=== PATIENT | female | born 1950 | race Caucasian/White ===

== ENCOUNTER → 2019-03-07 08:08 | Outpatient (CLI) | payer MEDICARE, OTHER, SELFPAY ==
--- NOTE | 2019-03-07 08:18 | BI_ITS ---
MAMMOGRAPHY - BILATERAL SCREENING 3-D TOMOSYNTHESIS REASON FOR EXAM: Female, 68 years old. Screening PERTINENT HISTORY: No significant family history. TECHNIQUE: 2-D mammograms and 3-D Tomosynthesis of the breast (s) were performed. CAD was performed. COMPARISON: 03/27/2017 BILATERAL DIGITAL MAMMOGRAM WITH TOMOSYNTHESIS: Mediolateraloblique and craniocaudal views demonstrate no evidence of dominant parenchymal masses. No cluster of microcalcifications or architectural distortion is seen. No evidence of skin thickening is identified. There has been no significant change since 03/27/2017 . Breast Density: The breast tissue is extremely dense which may lower the sensitivity of mammography. CAD was used to assist in final assessment. IMPRESSION: NORMAL MAMMOGRAM BILATERALLY. FINAL ASSESSMENT: BIRAD 1 (NEGATIVE) FOLLOW UP RECOMMENDATION: Yearly follow up mammogram recommended. (A) Approximately 10% of breast cancers are not detected by mammography. A normal mammogram should not delay biopsy of a clinically suspicious abnormality. Electronically Signed: Marcello Cortez, at 7:14 EDT Tel , Service support , BI/SCREEN MAMM (CAD) W/ABRAN GARCIA
== END ==
PROVIDERS: Family Provider Family Medicine; Referring Provider Nurse Practitioner Women's Health; Visit Provider Nurse Practitioner Women's Health
DX: Z12.31 Encounter for screening mammogram for malignant neoplasm of breast (principal)
CPT/HCPCS: 77063; 77067

== ENCOUNTER → 2019-07-22 08:22 | Outpatient (CLI) | payer MEDICARE, OTHER, SELFPAY ==
[2019-07-15 08:05] VITALS: BMI 18.0
--- NOTE | 2019-07-22 08:24 | US_ITS ---
STUDY: ULTRASOUND OF THE FEMALE PELVIS - COMPLETE REASON FOR EXAM: Female, 69 years old. BLOATING LMP: Unknown. TECHNIQUE: Transabdominal and Transvaginal TECHNICAL QUALITY: Adequate. COMPARISON: None. FINDINGS: The uterus is anteverted and is in a midline position. The uterus measures 6.3 x 5 20 x 2.9 cm. There is a Nabothian cyst of the cervix. The endometrium measures 7 mm in thickness, and is hyperechoic. There is no demonstrated endometrial mass. There are small calcifications in the myometrium I.U.D. - The patient does not have an I.U.D. . The right ovary is visualized. The right ovary measures 1.5 x 1.4 x 1.3 cm. There is no right ovarian cyst or ovarian mass. There is no visualized right adnexal mass or complex lesion. There is normal arterial and normal venous vascularity. The left ovary is visualized. The left ovary measures 2.6 x 1.9 x 1.2 cm. There is no left ovarian cyst or ovarian mass. There is no visualized left adnexal mass or complex lesion. There is normal arterial and normal venous vascularity. There is no fluid in the cul-de-sac. The pre void volume of the bladder was 91 ml. US/Transvaginal Non- IMPRESSION: No dominant mass or cyst. Electronically Signed: Nathan Collins MD at 12:08 EST , Service support ,
--- NOTE | 2019-07-22 08:24 | US_ITS ---
STUDY: ULTRASOUND OF THE FEMALE PELVIS - COMPLETE REASON FOR EXAM: Female, 69 years old. BLOATING LMP: Unknown. TECHNIQUE: Transabdominal and Transvaginal TECHNICAL QUALITY: Adequate. COMPARISON: None. FINDINGS: The uterus is anteverted and is in a midline position. The uterus measures 6.3 x 5 20 x 2.9 cm. There is a Nabothian cyst of the cervix. The endometrium measures 7 mm in thickness, and is hyperechoic. There is no demonstrated endometrial mass. There are small calcifications in the myometrium I.U.D. - The patient does not have an I.U.D. . The right ovary is visualized. The right ovary measures 1.5 x 1.4 x 1.3 cm. There is no right ovarian cyst or ovarian mass. There is no visualized right adnexal mass or complex lesion. There is normal arterial and normal venous vascularity. The left ovary is visualized. The left ovary measures 2.6 x 1.9 x 1.2 cm. There is no left ovarian cyst or ovarian mass. There is no visualized left adnexal mass or complex lesion. There is normal arterial and normal venous vascularity. There is no fluid in the cul-de-sac. The pre void volume of the bladder was 91 ml. US/Pelvic (Non ) IMPRESSION: No dominant mass or cyst. Electronically Signed: Nathan Collins MD at 12:08 EST , Service support ,
== END ==
PROVIDERS: Referring Provider Nurse Practitioner Women's Health; Visit Provider Nurse Practitioner Women's Health
DX: R14.0 Abdominal distension (gaseous) (principal)
CPT/HCPCS: 76830; 76856

== ENCOUNTER → 2019-09-23 08:16 | Outpatient (CLI) | payer MEDICARE, OTHER, SELFPAY ==
[2019-07-15 08:05] VITALS: BMI 18.0
--- NOTE | 2019-09-23 08:18 | US_ITS ---
STUDY: ULTRASOUND OF THE FEMALE PELVIS - COMPLETE REASON FOR EXAM: Female, 69 years old. Bloating , post ankur- , re-check endo LMP: The patient is postmenopausal. TECHNIQUE: Transabdominal and Transvaginal TECHNICAL QUALITY: Adequate. COMPARISON: Comparison is made with prior examination dated July 22, 2019. FINDINGS: The uterus is anteverted and is in a midline position. The uterus measures 6.1 cm x 4.2 cm x 2.7 cm. Normal uterine cervix. The endometrium measures 8.0 mm in thickness, and is hyperechoic. There is no demonstrated endometrial mass. There is no demonstrated myometrial mass. Stable small calcifications are noted in the myometrium. I.U.D. - The patient does not have an I.U.D. The right ovary is visualized. The right ovary measures 1.8 cm x 1.8 cm x 1.7 cm. There is no right ovarian cyst or ovarian mass. There is no visualized right adnexal mass or complex lesion. There is normal arterial and normal venous vascularity. The left ovary is visualized. The left ovary measures 2.3 cm x 2 cm x 1.3 cm. There is no left ovarian cyst or ovarian mass. There is no visualized left adnexal mass or complex lesion. There is normal arterial and normal venous vascularity. There is no fluid in the cul-de-sac. The pre void volume of the bladder was 185 ml. Polycystic ovary disease: No. US/Pelvic (Non ) IMPRESSION: Persistent thickening of the endometrium. Electronically Signed: Ezra Rodrigez, at 9:52 EDT , Service support ,
--- NOTE | 2019-09-23 08:18 | US_ITS ---
STUDY: ULTRASOUND OF THE FEMALE PELVIS - COMPLETE REASON FOR EXAM: Female, 69 years old. Bloating , post ankur- , re-check endo LMP: The patient is postmenopausal. TECHNIQUE: Transabdominal and Transvaginal TECHNICAL QUALITY: Adequate. COMPARISON: Comparison is made with prior examination dated July 22, 2019. FINDINGS: The uterus is anteverted and is in a midline position. The uterus measures 6.1 cm x 4.2 cm x 2.7 cm. Normal uterine cervix. The endometrium measures 8.0 mm in thickness, and is hyperechoic. There is no demonstrated endometrial mass. There is no demonstrated myometrial mass. Stable small calcifications are noted in the myometrium. I.U.D. - The patient does not have an I.U.D. The right ovary is visualized. The right ovary measures 1.8 cm x 1.8 cm x 1.7 cm. There is no right ovarian cyst or ovarian mass. There is no visualized right adnexal mass or complex lesion. There is normal arterial and normal venous vascularity. The left ovary is visualized. The left ovary measures 2.3 cm x 2 cm x 1.3 cm. There is no left ovarian cyst or ovarian mass. There is no visualized left adnexal mass or complex lesion. There is normal arterial and normal venous vascularity. There is no fluid in the cul-de-sac. The pre void volume of the bladder was 185 ml. Polycystic ovary disease: No. US/Transvaginal Non- IMPRESSION: Persistent thickening of the endometrium. Electronically Signed: Ezra Rodrigez, at 9:52 EDT , Service support ,
== END ==
PROVIDERS: Referring Provider Nurse Practitioner Women's Health; Visit Provider Nurse Practitioner Women's Health
DX: R14.0 Abdominal distension (gaseous) (principal)
CPT/HCPCS: 76830; 76856

== ENCOUNTER → 2019-10-21 13:00 | Outpatient (CLI) | payer MEDICARE, OTHER, SELFPAY ==
[2019-10-21 08:29] VITALS: BMI 18.6
--- NOTE | 2019-10-21 08:45 | EMB_PTH ---
PATIENT: TATO ESTRADA LOC: [facility] U#:[id number] AGE/SX: 75/F ROOM: RE10/21/[address]: SANDRA Membreno : 1950 BED: DIS: SPEC #: [id number] RECD: 10/21/19 12:45 STATUS: MICHELLE REJessica #: [id number] GRUPO: 10/21/19 08:[address]: Roxanne Harmon NP DEPT: SURGICAL PATHOLOGY RECD BY: Gucci Mcarthur ENTERED: 10/22/19 09:13 SP TYPE: ENDOM BX/C ANA DR: Dr. Augustine Mccoy MD Tissues: Endometrium, NOS Procedures: Surgery Specimen Level IV HEADER OPERATION: Endometrial biopsy PRE-OP DIAGNOSIS: Abnormal uterine bleeding TISSUE SUBMITTED: Endometrial lining MICROSCOPIC DIAGNOSIS Endometrial biopsy: Strips of benign endometrial epithelium, consistent with atrophic endometrium. Fragments of benign endocervical epithelium and mucous. See comment. SJ:marci 10/23/19 COMMENT The specimen predominantly consists of mucoid tissue. MICROSCOPIC DESCRIPTION Slides are reviewed. GROSS DESCRIPTION Received is one container labeled with the patient's name and not further designated. The specimen consists of multiple irregular fragments of lino soft tissue mixed with mucoid tissue that in aggregate measure 2.5 x 1.5 x 0.2 cm. The specimen is totally submitted in one cassette. / SJ:marci 10/22/19 TC:4 CPT: 48472
== END ==
PROVIDERS: Visit Provider Nurse Practitioner Women's Health
DX: N93.9 Abnormal uterine and vaginal bleeding, unspecified (principal)
CPT/HCPCS: 88305

== ENCOUNTER → 2020-03-09 | Outpatient (CLI) | payer MEDICARE, OTHER, SELFPAY ==
[2019-10-21 08:29] VITALS: BMI 18.6
--- NOTE | 2020-03-09 07:50 | BI_ITS ---
MAMMOGRAPHY - BILATERAL SCREENING REASON FOR EXAM: Female, 69 years old. Routine annual screening examination. PERTINENT HISTORY: NO FAM HX CURR HRT PRN SINCE 07/2018 RT STEREO BX 1999 AND 2016 BILAT MOLES MARKED RT NIPPLE SMALL RED DOT X 1 WEEK TECHNIQUE: Digital bilateral breast abran (3D mammographic acquisition) in the CC and MLO projections. 2-D mediolateral oblique (MLO) and craniocaudad (CC) views of both breasts were obtained. CAD: Full Field Digital Mammography with Computer Added Detection was performed. COMPARISON: 03/07/2019 and 05/07/2017 FINDINGS: Breast Composition: The breasts are heterogeneously dense, which may obscure small masses. There are no dominant masses or suspicious calcifications. No other significant abnormalities are identified. BI/SCREEN MAMM (CAD) W/ABRAN BILAT IMPRESSION: Stable bilateral screening mammogram. Yearly follow-up mammogram recommended. (A) ASSESSMENT CATEGORY: BIRADS Category 2: Benign. A letter regarding these results will be sent to the patient by the facility within 30 days. Approximately 10% of breast cancers are not detected by mammography. A normal mammogram should not delay biopsy of a clinically suspicious abnormality. [id number] Electronically Signed: Angel Baron, at 14:55 EDT Tel , Service support ,
== END | disposition home or self-care (01) ==
LOC: OPBI 07:50
PROVIDERS: Referring Provider Nurse Practitioner Women's Health; Visit Provider Nurse Practitioner Women's Health
DX: Z12.31 Encounter for screening mammogram for malignant neoplasm of breast (principal)
CPT/HCPCS: 77063; 77067

== ENCOUNTER → 2020-10-06 13:47 | Outpatient (CLI) | payer MEDICARE, OTHER, SELFPAY ==
[2020-07-20 08:05] VITALS: BMI 18.8
--- NOTE | 2020-10-06 13:49 | RAD_ITS ---
STUDY: BARIUM ENEMA. Incomplete colonoscopy. REASON FOR EXAM: Female, 70 years old. SCREENING FOR COLON CA FLUOROSCOPY TIME (if supplied): ( 68 seconds ) minutes/seconds. 9 images were obtained. TECHNIQUE: A peanut sorter film was obtained. Following this, barium was introduced retrograde through the rectum. The entire colon was opacified. COMPARISON: None. FINDINGS: On the peanut sorter image, nonspecific bowel gas pattern. The entire colon was opacified. There is evidence of the sigmoid diverticulosis with no radiographic evidence of diverticulitis. There is evidence of redundancy of the sigmoid colon. There is no evidence of retrograde or antegrade obstruction to the flow of contrast. RAD/Barium Enema w/Air Contrast IMPRESSION: Sigmoid diverticulosis with no radiographic signs of diverticulitis. Electronically Signed: Ezra Rodrigez MD at 14:35 EDT , Service support ,
== END ==
PROVIDERS: Referring Provider Surgery; Visit Provider Surgery
DX: Z12.11 Encounter for screening for malignant neoplasm of colon (principal)
CPT/HCPCS: 74280

== ENCOUNTER 2020-12-14 13:45 | Emergency (ER) | payer MEDICARE, OTHER, SELFPAY ==
[2020-07-20 08:05] VITALS: BMI 18.8
[2020-12-14 13:46] VITALS: BP 157/82; PULSE 75; RESP 16; TEMP 36.6; O2SAT 97; BMI 19.2
[2020-12-14] MEDS: Lidocaine 1% (20 ml mdv) 20 ML Vial INFILT (14:06)
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
--- NOTE | 2020-12-14 15:10 | RAD_ITS ---
STUDY: X-RAY - LEFT ELBOW REASON FOR EXAM: Female, 70 years old. Pain following a fall. TECHNIQUE: 3 view(s) of the elbow. COMPARISON: None. FINDINGS: Normal visualized humerus, radius and ulna. Normal radiocapitellar and ulnotrochlear articulations. Soft tissue swelling and laceration overlying the proximal ulna. RAD/Elbow min 3 Views IMPRESSION: Soft tissue swelling and ulceration overlying the posterior proximal ulna. Electronically Signed: Ezra Rodrigez MD at 15:37 EDT , Service support ,
[2020-12-14] MEDS: Ibuprofen 200 MG Tablet 400 MG PO (16:45)
== END 2020-12-14 16:51 | disposition home or self-care (01) ==
PROVIDERS: Emergency Provider Emergency Medicine; PCP Family Medicine
DX: S51.022A Laceration with foreign body of left elbow, initial encounter (principal); S60.512A Abrasion of left hand, initial encounter; S60.511A Abrasion of right hand, initial encounter; S80.212A Abrasion, left knee, initial encounter; S80.211A Abrasion, right knee, initial encounter; V11.0XXA Pedal cycle driver injured in collision with other pedal cycle in nontraffic accident, initial encounter; Y93.55 Activity, bike riding; Y92.89 Other specified places as the place of occurrence of the external cause; Y99.8 Other external cause status
CPT/HCPCS: 12002; 73080; 99283

== ENCOUNTER → 2021-01-20 08:37 | Outpatient (CLI) | payer MEDICARE, OTHER, SELFPAY ==
[2021-01-17 12:49] VITALS: BMI 19.2
--- NOTE | 2021-01-20 08:38 | US_ITS ---
STUDY: ULTRASOUND OF THE FEMALE PELVIS - COMPLETE REASON FOR EXAM: Female, 70 years old. Postmenopausal bleeding. Pelvic pain. LMP: Patient is postmenopausal. TECHNIQUE: Transabdominal and Transvaginal TECHNICAL QUALITY: Adequate. COMPARISON: Comparison is made with prior examination 09/23/2019. FINDINGS: The uterus is anteverted and is in a midline position. The uterus measures 5.8 cm x 5.2 cm x 2.8 cm. Normal uterine cervix. The endometrium is thickened and measures 5 mm in thickness, and is hyperechoic. There is no demonstrated endometrial mass. There is a 6 mm x 5 mm cystic change in the myometrium. I.U.D. - The patient does not have an I.U.D. The right ovary is visualized. The right ovary measures 1.8 cm x 2.3 cm x 1.1 cm. There is no right ovarian cyst or ovarian mass. There is no visualized right adnexal mass or complex lesion. There is normal arterial and normal venous vascularity. The left ovary is visualized. The left ovary measures 2.3 cm x 2.2 cm x 1.6 cm. There is no left ovarian cyst or ovarian mass. There is no visualized left adnexal mass or complex lesion. There is normal arterial and normal venous vascularity. There is minimal fluid in the cul-de-sac. The pre void volume of the bladder was 122 ml. Polycystic ovary disease: No. US/Transvaginal Non- IMPRESSION: Thickening of the endometrium. 6 mm x 5 mm cyst in the myometrium. Electronically Signed: Ezra Rodrigez MD at 14:37 EDT , Service support ,
--- NOTE | 2021-01-20 08:38 | US_ITS ---
STUDY: ULTRASOUND OF THE FEMALE PELVIS - COMPLETE REASON FOR EXAM: Female, 70 years old. Postmenopausal bleeding. Pelvic pain. LMP: Patient is postmenopausal. TECHNIQUE: Transabdominal and Transvaginal TECHNICAL QUALITY: Adequate. COMPARISON: Comparison is made with prior examination 09/23/2019. FINDINGS: The uterus is anteverted and is in a midline position. The uterus measures 5.8 cm x 5.2 cm x 2.8 cm. Normal uterine cervix. The endometrium is thickened and measures 5 mm in thickness, and is hyperechoic. There is no demonstrated endometrial mass. There is a 6 mm x 5 mm cystic change in the myometrium. I.U.D. - The patient does not have an I.U.D. The right ovary is visualized. The right ovary measures 1.8 cm x 2.3 cm x 1.1 cm. There is no right ovarian cyst or ovarian mass. There is no visualized right adnexal mass or complex lesion. There is normal arterial and normal venous vascularity. The left ovary is visualized. The left ovary measures 2.3 cm x 2.2 cm x 1.6 cm. There is no left ovarian cyst or ovarian mass. There is no visualized left adnexal mass or complex lesion. There is normal arterial and normal venous vascularity. There is minimal fluid in the cul-de-sac. The pre void volume of the bladder was 122 ml. Polycystic ovary disease: No. US/Pelvic (Non ) IMPRESSION: Thickening of the endometrium. 6 mm x 5 mm cyst in the myometrium. Electronically Signed: Ezra Rodrigez MD at 14:37 EDT , Service support ,
== END ==
PROVIDERS: Referring Provider Nurse Practitioner Women's Health; Visit Provider Nurse Practitioner Women's Health
DX: N85.8 Other specified noninflammatory disorders of uterus (principal); N95.0 Postmenopausal bleeding; R93.89 Abnormal findings on diagnostic imaging of other specified body structures; R10.2 Pelvic and perineal pain; Z78.0 Asymptomatic menopausal state
CPT/HCPCS: 76830; 76856; 93976

== ENCOUNTER → 2021-03-10 08:04 | Outpatient (CLI) | payer MEDICARE, OTHER, SELFPAY ==
[2020-07-20 08:05] VITALS: BMI 18.8
--- NOTE | 2021-03-10 08:05 | BI_ITS ---
MAMMOGRAPHY - BILATERAL SCREENING 3-D TOMOSYNTHESIS REASON FOR EXAM: Female, 70 years old. screening for breast cancer PERTINENT HISTORY: No significant family history. TECHNIQUE: 2-D mammograms and 3-D Tomosynthesis of the breast (s) were performed. CAD was performed. COMPARISON: 03/09/2020 FINDINGS: The breast composition is Extermely dense tissue. Scattered benign calcifications are seen. No dense spiculated masses or suspicious microcalcifications are identified. No architectural distortion is identified. There is no skin thickening or retraction. There has been no significant change since the prior study. BI/SCRN MAMM (CAD)W/ABRAN BILAT IMPRESSION: No mammographic signs of malignancy. Routine yearly mammograms recommended. ASSESSMENT CATEGORY: BIRADS Category 1: Negative. A letter regarding these results will be sent to the patient by the facility within 30 days. FOLLOW UP RECOMMENDATION: Yearly follow up mammogram recommended. (A) Approximately 10% of breast cancers are not detected by mammography. A normal mammogram should not delay biopsy of a clinically suspicious abnormality. Electronically Signed: Juan Miguel Multani MD at 9:16 EDT Tel , Service support ,
== END ==
PROVIDERS: Referring Provider Nurse Practitioner Women's Health; Visit Provider Nurse Practitioner Women's Health
DX: Z12.31 Encounter for screening mammogram for malignant neoplasm of breast (principal)
CPT/HCPCS: 77063; 77067

== ENCOUNTER 2021-06-05 08:12 | Outpatient (CLI) | payer MEDICARE, OTHER, SELFPAY ==
--- NOTE | 2021-06-05 08:16 | US_ITS ---
STUDY: ULTRASOUND OF THE FEMALE PELVIS - COMPLETE REASON FOR EXAM: Female, 71 years old. Abnormal uterine bleeding LMP: Patient is postmenopausal. TECHNIQUE: Transabdominal and Transvaginal TECHNICAL QUALITY: Adequate. COMPARISON: Comparison is made with prior examination dated 01/20/2021. FINDINGS: The uterus is anteverted and is in a midline position. The uterus measures 6 cm x 3.9 cm x 2.3 cm. Normal uterine cervix. The endometrium is thickened and measures 5 mm in thickness, and is fluid distended. There is no demonstrated endometrial mass. 5 mm x 5 mm x 3 mm cyst within the myometrium. This is essentially unchanged. I.U.D. - The patient does not have an I.U.D. The right ovary is visualized. The right ovary measures 1.3 cm x 1.2 cm x 2.3 cm. There is no right ovarian cyst or ovarian mass. There is no visualized right adnexal mass or complex lesion. There is normal arterial and normal venous vascularity. The left ovary is visualized. The left ovary measures 1.8 cm x 1.9 cm x 1.6 cm. There is no left ovarian cyst or ovarian mass. There is no visualized left adnexal mass or complex lesion. There is normal arterial and normal venous vascularity. There is no fluid in the cul-de-sac. The pre void volume of the bladder was 221 ml. US/Pelvic (Non ) IMPRESSION: Thickened endometrium. Stable myometrial cyst. Electronically Signed: Ezra Rodrigez MD at 14:29 EST , Service support ,
--- NOTE | 2021-06-05 08:16 | US_ITS ---
STUDY: ULTRASOUND OF THE FEMALE PELVIS - COMPLETE REASON FOR EXAM: Female, 71 years old. Abnormal uterine bleeding LMP: Patient is postmenopausal. TECHNIQUE: Transabdominal and Transvaginal TECHNICAL QUALITY: Adequate. COMPARISON: Comparison is made with prior examination dated 01/20/2021. FINDINGS: The uterus is anteverted and is in a midline position. The uterus measures 6 cm x 3.9 cm x 2.3 cm. Normal uterine cervix. The endometrium is thickened and measures 5 mm in thickness, and is fluid distended. There is no demonstrated endometrial mass. 5 mm x 5 mm x 3 mm cyst within the myometrium. This is essentially unchanged. I.U.D. - The patient does not have an I.U.D. The right ovary is visualized. The right ovary measures 1.3 cm x 1.2 cm x 2.3 cm. There is no right ovarian cyst or ovarian mass. There is no visualized right adnexal mass or complex lesion. There is normal arterial and normal venous vascularity. The left ovary is visualized. The left ovary measures 1.8 cm x 1.9 cm x 1.6 cm. There is no left ovarian cyst or ovarian mass. There is no visualized left adnexal mass or complex lesion. There is normal arterial and normal venous vascularity. There is no fluid in the cul-de-sac. The pre void volume of the bladder was 221 ml. US/Transvaginal Non- IMPRESSION: Thickened endometrium. Stable myometrial cyst. Electronically Signed: Ezra Rodrigez MD at 14:29 EST , Service support ,
== END 2021-06-05 23:59 | disposition short-term general hospital (02) ==
LOC: US 08:15
PROVIDERS: Referring Provider Obstetrics & Gynecology; Visit Provider Obstetrics & Gynecology
DX: N95.0 Postmenopausal bleeding (principal); N85.8 Other specified noninflammatory disorders of uterus; R93.89 Abnormal findings on diagnostic imaging of other specified body structures
CPT/HCPCS: 76830; 76856

== ENCOUNTER → 2021-12-07 | Outpatient (CLI) | payer MEDICARE, OTHER, SELFPAY ==
--- NOTE | 2021-12-07 07:43 | US_ITS ---
STUDY: ULTRASOUND OF THE FEMALE PELVIS - COMPLETE REASON FOR EXAM: Female, 71 years old. Abnormal uterine bleeding LMP: Patient is postmenopausal. TECHNIQUE: Transabdominal and Transvaginal TECHNICAL QUALITY: Adequate. COMPARISON: Comparison is made with prior study dated 06/05/2021. FINDINGS: The uterus is anteverted and is in a midline position. The uterus measures 5.6 cm x 4.3 cm x 2.7 cm. There is a Nabothian cyst of the cervix. The endometrium measures 2.4 mm in thickness, and is heterogeneous (striated). Tiny amount of fluid is seen in the endometrium. There is no demonstrated endometrial mass. Heterogeneous echotexture of the myometrium suggestive of fibroid change. I.U.D. - The patient does not have an I.U.D. The right ovary is non-visualized. The left ovary is visualized. The left ovary measures 1.4 cm x 0.9 cm x 0.9 cm. There is no left ovarian cyst or ovarian mass. There is no visualized left adnexal mass or complex lesion. There is normal arterial and normal venous vascularity. There is no fluid in the cul-de-sac. The pre void volume of the bladder was 169 ml. US/Transvaginal Non- IMPRESSION: Heterogeneous appearance of the myometrium suggesting fibroid change. Tiny amount of endometrial fluid. Electronically Signed: Ezra Rodrigez MD at 9:57 EDT ,
--- NOTE | 2021-12-07 07:43 | US_ITS ---
STUDY: ULTRASOUND OF THE FEMALE PELVIS - COMPLETE REASON FOR EXAM: Female, 71 years old. Abnormal uterine bleeding LMP: Patient is postmenopausal. TECHNIQUE: Transabdominal and Transvaginal TECHNICAL QUALITY: Adequate. COMPARISON: Comparison is made with prior study dated 06/05/2021. FINDINGS: The uterus is anteverted and is in a midline position. The uterus measures 5.6 cm x 4.3 cm x 2.7 cm. There is a Nabothian cyst of the cervix. The endometrium measures 2.4 mm in thickness, and is heterogeneous (striated). Tiny amount of fluid is seen in the endometrium. There is no demonstrated endometrial mass. Heterogeneous echotexture of the myometrium suggestive of fibroid change. I.U.D. - The patient does not have an I.U.D. The right ovary is non-visualized. The left ovary is visualized. The left ovary measures 1.4 cm x 0.9 cm x 0.9 cm. There is no left ovarian cyst or ovarian mass. There is no visualized left adnexal mass or complex lesion. There is normal arterial and normal venous vascularity. There is no fluid in the cul-de-sac. The pre void volume of the bladder was 169 ml. US/Pelvic (Non ) IMPRESSION: Heterogeneous appearance of the myometrium suggesting fibroid change. Tiny amount of endometrial fluid. Electronically Signed: Ezra Rodrigez MD at 9:57 EDT ,
== END | disposition home or self-care (01) ==
LOC: US 07:43
PROVIDERS: Referring Provider Obstetrics & Gynecology; Visit Provider Obstetrics & Gynecology
DX: N93.9 Abnormal uterine and vaginal bleeding, unspecified (principal); N95.0 Postmenopausal bleeding; Z78.0 Asymptomatic menopausal state
CPT/HCPCS: 76830; 76856

== ENCOUNTER → 2022-03-12 | Outpatient (CLI) | payer MEDICARE, OTHER, SELFPAY ==
--- NOTE | 2022-03-12 07:59 | BI_ITS ---
MAMMOGRAPHY - BILATERAL SCREENING REASON FOR EXAM: Female, 71 years old. Routine annual screening examination. PERTINENT HISTORY: Non-contributory. History of prior right stereotactic breast biopsy. TECHNIQUE: Digital bilateral breast abran (3D mammographic acquisition) in the CC and MLO projections. 2-D mediolateral oblique (MLO) and craniocaudad (CC) views of both breasts were obtained. CAD: Full Field Digital Mammography with Computer Added Detection was performed. COMPARISON: Comparison is made with prior examination dated 03/10/2021 and 03/09/2020. FINDINGS: Breast Composition: The breasts are extremely dense, which lowers the sensitivity of mammography. There are no dominant masses or suspicious calcifications. A patient marker is once again seen in the deep upper lateral aspect of the right breast. A tissue clip marker is also seen in the inferior slightly medial portion of the right breast as well. No other significant abnormalities are identified. There has been no significant change since the prior study. BI/SCRN MAMM (CAD)W/ABRAN BILAT IMPRESSION: Stable bilateral screening mammogram. Yearly follow-up mammogram recommended. (A) ASSESSMENT CATEGORY: BIRADS Category 2: Benign. A letter regarding these results will be sent to the patient by the facility within 30 days. Approximately 10% of breast cancers are not detected by mammography. A normal mammogram should not delay biopsy of a clinically suspicious abnormality. [id number] Electronically Signed: Ezra Rodrigez MD at 9:07 EDT ,
== END | disposition home or self-care (01) ==
LOC: OPBI 07:58
PROVIDERS: Visit Provider Nurse Practitioner Women's Health
DX: Z12.31 Encounter for screening mammogram for malignant neoplasm of breast (principal)
CPT/HCPCS: 77063; 77067

== ENCOUNTER 2022-05-19 20:27 | Emergency (ER) | payer MEDICARE, OTHER, SELFPAY ==
[2022-05-19 20:28] VITALS: BP 172/83; PULSE 71; RESP 16; TEMP 36.6; O2SAT 98; BMI 19.4
[2022-05-19 20:30] VITALS: BP 172/83; PULSE 71; RESP 16; TEMP 36.6; O2SAT 98
--- NOTE | 2022-05-19 22:27 | EDS_ITS ---
HPI History of Present Illness Chief Complaint: Abd Pain Informant: patient Onset/Context/Timing Onset: Today Current Severity: Gone Maximum Severity: Moderate Narrative Narrative: Patient presents secondary to right lower quadrant abdominal pain. She states that she had developed a painful lump on her right lower abdomen just above the groin line around 6 PM this evening. After laying in the hospital bed it seems to have disappeared and her pain has since resolved as well. Patient denies any known history of hernia. [facility] Medical History Microcalcification of right breast on mammogram stereotactic breast biopsy (05/2017) Thickened endometrium Home Medications multivitamin,[id number] (Complete Multivitamin tablet) 1 tab PO DAILY 07/15/19 [History Last Taken Unknown] antiarthritic combination no.2 900 mg tablet (glucosamine-chondroitin) mg PO 07/20/20 [History Last Taken Unknown] biotin 1 mg capsule 1 mg PO DAILY 07/20/20 [History Last Taken Unknown] Allergy/AdvReac Type Severity Reaction Status Date / Time penicillin G Allergy Severe Anaphylaxis Verified 07/24/21 08:04 Sulfa (Sulfonamide Allergy Severe anaphylaxis Verified 07/24/21 08:04 Antibiotics) amoxicillin Allergy Intermediate Anaphylaxis Verified 07/24/21 08:04 Family History Father Hypertension Sister Colon cancer Mother Cancer Surgical History History of tonsillectomy Previous section Social History Smoking Status: Never smoker second hand exposure: No alcohol intake: never substance use type: does not use caffeine: No what type of physical activity do you participate in: walking seatbelt use: always do you feel safe at home: Yes additional social history: - Works at [employer] Constitutional Constitutional ED: Denies chills or fever(s) Eyes Eyes: Denies change in vision or discharge from eye(s) ENT ENT ED: Denies discharge from eye(s), rhinorrhea or sore throat Cardiovascular Cardiovascular: Denies chest pain or palpitations Respiratory/Chest Respiratory/Chest: Denies cough or dyspnea Gastrointestinal Gastrointestinal: Reports abdominal pain; Denies diarrhea, nausea or vomiting Genitourinary Genitourinary ED: Denies dysuria Musculoskeletal Musculoskeletal: Denies back pain or extremity pain Integumentary Denies Abrasions or rash Neurologic Neurologic: Denies headache(s) or weakness Psychiatric Psychiatric: Denies anxiety or depression Allergic/Immunologic Allergic/Immunologic ED: Denies lip swelling or urticaria EXAM Physical Exam Const Vital Signs: 05/19/22 20:28 05/19/22 20:30 Temperature 97.9 F 97.9 F Temperature Source Temporal Temporal Pulse Rate 71 71 Respiratory Rate 16 16 Blood Pressure 172/83 H 172/83 H Blood Pressure Mean 112 112 Pulse Ox 98 98 Oxygen Delivery Method Room Air Room Air Positive well nourished and well developed General Appearance ED: well developed HEENT Reports moist mucous membranes Neck no lymphadenopathy Chest Wall inspection of chest normal and palpation of chest normal Resp normal respiratory effort and clear to auscultation bilaterally Cardio regular rate and regular rhythm GI normal to inspection, nondistended, normoactive bowel sounds and non-tender Palpation: Negative for mass Extremity normal to inspection Neuro oriented x3 and no sensory deficits noted Motor Exam: strength 5/5 throughout Psych mental status grossly normal Skin no rashes or lesions noted MDM MDM MDM Narrative Medical decision making narrative: Patient presents with what sounds like an inguinal hernia that has since self reduced. Patient does not have symptoms consistent with kidney stone or appendicitis. We discussed appropriate treatment if the hernia were to recur and when to come to the emergency room. She was advised that this may require surgery for definitive repair if it keeps recurring. Return instructions given. Discharge Plan Triage Chief Complaint: Abd Pain ED Provider: Marnie Andino Dx/Rx/DC Orders Clinical Impression: Hernia Instructions: ED Hernia (Adult) Prescriptions: No Action Complete Multivitamin Tablet 1 tab PO DAILY biotin 1 mg capsule 1 mg PO DAILY glucosamine-chondroitin 900 mg tablet PO Primary Care Provider: Care Physician,No Primary Referrals: Jong Davidson MD [Med Staff - Active Staff] - As Needed Care Physician,No Primary [Primary Care Provider] - Activity Restrictions/Additional Instructions: If you start noticing more frequent problems with your hernia, please follow-up with surgery as it could be repaired electively. As discussed, if the lump becomes painful and you are unable to reduce it at home please present to the emergency room. Disposition Disposition: Home, Self Care Discharge Date/Time: 05/19/22 22:41
== END 2022-05-19 22:41 | disposition home or self-care (01) ==
PROVIDERS: Emergency Provider Emergency Medicine; Visit Provider Emergency Medicine
DX: K40.90 Unilateral inguinal hernia, without obstruction or gangrene, not specified as recurrent (principal); R10.31 Right lower quadrant pain
CPT/HCPCS: 99282

== ENCOUNTER → 2023-03-13 | Outpatient (CLI) | payer MEDICARE, OTHER, SELFPAY ==
--- NOTE | 2023-03-13 09:02 | BI_ITS ---
MAMMOGRAPHY - BILATERAL SCREENING REASON FOR EXAM: Female, 72 years old. Routine annual screening examination. PERTINENT HISTORY: Non-contributory. Prior right stereotactic breast biopsies. TECHNIQUE: Digital bilateral breast abran (3D mammographic acquisition) in the CC and MLO projections. 2-D mediolateral oblique (MLO) and craniocaudad (CC) views of both breasts were obtained. CAD: Full Field Digital Mammography with Computer Added Detection was performed. COMPARISON: Comparison is made with prior study dated March 12, 2022 and March 10, 2021. FINDINGS: Breast Composition: The breasts are extremely dense, which lowers the sensitivity of mammography. There are no dominant masses or suspicious calcifications. A tissue clip marker is once again seen in the deep upper lateral aspect of the right breast. A second tissue clip marker is also seen in the inferior slightly medial portion of the right breast. No other significant abnormalities are identified. There has been no significant change since the prior study. BI/SCRN MAMM (CAD)W/ABRAN BILAT IMPRESSION: Stable bilateral screening mammogram. Yearly follow-up mammogram recommended. (A) ASSESSMENT CATEGORY: BIRADS Category 2: Benign. A letter regarding these results will be sent to the patient by the facility within 30 days. Approximately 10% of breast cancers are not detected by mammography. A normal mammogram should not delay biopsy of a clinically suspicious abnormality. [id number] Electronically Signed: Ezra Rodrigez MD at 10:35 EDT ,
== END | disposition home or self-care (01) ==
LOC: OPBD 09:01
PROVIDERS: Referring Provider Nurse Practitioner Women's Health; Visit Provider Nurse Practitioner Women's Health
DX: Z12.31 Encounter for screening mammogram for malignant neoplasm of breast (principal)
CPT/HCPCS: 77063; 77067

== ENCOUNTER → 2024-03-18 | Outpatient (CLI) | payer MEDICARE, OTHER, SELFPAY ==
--- NOTE | 2024-03-18 10:46 | BI_ITS ---
MAMMOGRAPHY - BILATERAL SCREENING 3-D TOMOSYNTHESIS REASON FOR EXAM: Female, 73 years old. Screening for breast cancer PERTINENT HISTORY: No significant family history. TECHNIQUE: 2-D mammograms and 3-D Tomosynthesis of the breast (s) were performed. CAD was performed. COMPARISON: 03/13/2023 FINDINGS: The breast composition is Extermely dense tissue. Scattered benign calcifications are seen. No dense spiculated masses or suspicious microcalcifications are identified. No architectural distortion is identified. There is no skin thickening or retraction. There has been no significant change since the prior study. BI/SCRN MAMM (CAD)W/ABRAN BILAT IMPRESSION: No mammographic signs of malignancy. Routine yearly mammograms recommended. ASSESSMENT CATEGORY: BIRADS Category 1: Negative. A letter regarding these results will be sent to the patient by the facility within 30 days. FOLLOW UP RECOMMENDATION: Yearly follow up mammogram recommended. (A) Approximately 10% of breast cancers are not detected by mammography. A normal mammogram should not delay biopsy of a clinically suspicious abnormality. Electronically Signed: Juan Miguel Multani MD at 12:25 EDT ,
== END | disposition home or self-care (01) ==
LOC: OPBI 10:46
PROVIDERS: PCP Nurse Practitioner Family; Referring Provider Nurse Practitioner Women's Health; Visit Provider Nurse Practitioner Women's Health
DX: Z12.31 Encounter for screening mammogram for malignant neoplasm of breast (principal)
CPT/HCPCS: 77063; 77067

== ENCOUNTER → 2025-03-19 | Outpatient (CLI) | payer MEDICARE, OTHER, SELFPAY ==
--- NOTE | 2025-03-19 08:30 | BI_ITS ---
EXAM: SCRN MAMM (CAD)W/ABRAN BILAT DATE: 03/19/2025 CLINICAL HISTORY: F, Age 74 y/o , SCREENING FOR BREAST CANCER TECHNIQUE: Procedure Code: [id number] Modality: MG Procedure: SCRN MAMM (CAD)W/ABRAN BILAT COMPARISON: Prior exam(s) dated 03/18/2024, 03/13/2023. FINDINGS: TISSUE DENSITY: The breasts are extremely dense, which lowers the sensitivity of mammography. The mammogram demonstrates that the patient has dense breasts. Supplemental screening with whole breast ultrasound or MRI may be considered for further evaluation. Bilateral Breast Mammographic Findings: There is a focal asymmetry with associated architectural distortion in the upper-outer right breast at posterior depth. No significant masses, calcifications or other abnormalities are identified in the left breast. BI/SCRN MAMM (CAD)W/ABRAN BILAT IMPRESSION: The focal asymmetry with associated architectural distortion in the upper-outer right breast at posterior depth requires further evaluation. Recommend diagnostic mammogram and ultrasound of the right breast. OVERALL FINAL ASSESSMENT BI-RADS 0: INCOMPLETE - NEED ADDITIONAL IMAGING EVALUATION. RECOMMENDATION: Additional Views obtained/call backs Additional Recommendation none A letter with findings and recommendations will be mailed to the patient. Reading Location: [id number]
== END | disposition home or self-care (01) ==
PROVIDERS: PCP Nurse Practitioner Family; Referring Provider Nurse Practitioner Women's Health; Visit Provider Nurse Practitioner Women's Health
DX: Z12.31 Encounter for screening mammogram for malignant neoplasm of breast (principal)
CPT/HCPCS: 77063; 77067

== ENCOUNTER → 2025-03-24 | Outpatient (CLI) | payer MEDICARE, OTHER, SELFPAY ==
--- NOTE | 2025-03-24 08:48 | US_ITS ---
PROCEDURE: BREAST LIMITED UNILATERAL 03/24/2025 REASON FOR EXAM: F, Age 74 y/o , ABN MAMM Abnormal screening mammogram. COMPARISON: Prior mammogram dated March 24, 2025 and March 19, 2025.. TECHNIQUE: Procedure Code: [id number] Modality: US Procedure: BREAST LIMITED UNILATERAL. FINDINGS: The lateral upper half of the right breast was examined with ultrasound. Mild dilatation of retroareolar ducts. No solid or cystic mass lesion is seen. US/Breast Limited Unilateral IMPRESSION: Mild dilatation of retroareolar ducts. No solid or cystic mass is seen. BI-RADS 2: BENIGN RECOMMENDATION: Routine annual follow-up in 1 Year [facility]
--- NOTE | 2025-03-24 08:48 | BI_ITS ---
EXAM: DIAG MAMM W/CAD, UNILAT N/A CLINICAL HISTORY: F, Age 74 y/o , ABN MAMM TECHNIQUE: Procedure Code: [id number] Modality: MG Procedure: DIAG MAMM W/CAD, UNILAT. Compression spot views of the right breast were obtained. COMPARISON: Prior exam(s) dated March 19, 2025.. FINDINGS: TISSUE DENSITY: The breasts are extremely dense, which lowers the sensitivity of mammography. Bilateral Breast Mammographic Findings: No significant masses, calcifications or other abnormalities are identified. The previously seen architectural distortion is not well identified on the additional views. Sonographic correlation recommended. BI/DIAG MAMM W/CAD, UNILAT IMPRESSION: No suspicious abnormality is seen on the additional views. Targeted sonographi c correlation recommended. OVERALL FINAL ASSESSMENT BI-RADS 0: INCOMPLETE - NEED ADDITIONAL IMAGING EVALUATION. RECOMMENDATION: Ultrasound Recommended Additional Recommendation none A letter with findings and recommendations will be mailed to the patient. Reading Location: [place] [id number]
== END | disposition home or self-care (01) ==
LOC: OPBI 08:47
PROVIDERS: PCP Nurse Practitioner Family; Referring Provider Nurse Practitioner Women's Health; Visit Provider Nurse Practitioner Women's Health
DX: R92.8 Other abnormal and inconclusive findings on diagnostic imaging of breast (principal)
CPT/HCPCS: 76642; 77061; 77065; G0279